=== PATIENT | male | born 1970 | race Caucasian/White ===

== ENCOUNTER 2023-06-05 21:22 | Inpatient (IN) | payer BC ==
[~2023-06-05] VITALS: Ht 188 cm; Wt 112.7 kg
[2023-06-05] MEDS ORDERED: morphine 4 MG/ML inj SYRINge IV ONE (22:45)
[2023-06-05] MEDS ORDERED: ondansetron/PF 4mg/2ml inj IV ONE (22:45)
[2023-06-05] MEDS ORDERED: furosemide 10 MG/1 ML 10ml inj IV ONE (22:45)
[2023-06-05] MEDS ORDERED: enalaprilat dihydrate 2.5mg/2ml vial IV ONE (22:45)
[2023-06-05] MEDS ORDERED: aspirin 325mg tablet PO ONE (22:45)
[2023-06-05] MEDS ORDERED: nitroGLYCERIN 1gm ointment UD TP ONE (22:45)
[2023-06-05 22:46] LABS: BASOPHILS % (AUTO) 0.2 % (0-1); EOSINOPHILS % (AUTO) 0.4 % (0-6); HEMATOCRIT 36.4 % (42.0-52.0); HEMOGLOBIN 12.4 g/dl (14.0-17.9); LYMPHOCYTES % (AUTO) 7.9 % (21-51); MEAN CORPUSCULAR HEMOGLOBIN 30.3 PG (27.0-31.0); MEAN CORPUSCULAR VOLUME 89.1 FL (78-98); MEAN PLATELET VOLUME 7.4 FL (7.4-10.4); MONOCYTES # (AUTO) 1.1 X10'3 (0-0.9); MONOCYTES % (AUTO) 8.9 % (2-12); NEUTROPHILS # (AUTO) 10.5 X10'3 (1.8-7.7); NEUTROPHILS % (AUTO) 82.6 % (42-75); PLATELET COUNT 421 X10'3 (140-440); RED BLOOD COUNT 4.08 X10'6 (4.70-6.10); RED CELL DISTRIBUTION WIDTH 12.9 % (11.5-14.5); WHITE BLOOD COUNT 12.7 X10'3 (4.5-11.0)
[2023-06-05 22:55] LABS: ALANINE AMINOTRANSFERASE 24 U/L (12-78); ALBUMIN 3.7 G/DL (3.4-5.0); ALBUMIN/GLOBULIN RATIO 0.8 (1.1-1.5); ALKALINE PHOSPHATASE 131 IU/L (46-116); ANION GAP 13 (8-16); ASPARTATE AMINO TRANSFERASE 11 U/L (10-37); BILIRUBIN,TOTAL 0.7 MG/DL (0.1-1.0); BLOOD UREA NITROGEN 11 MG/DL (7-18); BUN/CREATININE RATIO 10.7 (10.0-20.0); CALCIUM 9.6 MG/DL (8.5-10.1); CHLORIDE 99 MMOL/L (99-107); CREATININE 1.03 MG/DL (0.60-1.10); GLUCOSE 152 MG/DL (70-104); POTASSIUM 3.8 MMOL/L (3.5-5.1); SODIUM 135 MMOL/L (135-145); TOTAL CARBON DIOXIDE 23.1 MMOL/L (24-32); TOTAL PROTEIN 8.3 G/DL (6.4-8.2); eGFR 76 ML/MIN
[2023-06-05 23:01] LABS: D-DIMER 0.35 MG/L FEU (0-0.50)
[2023-06-05] MEDS ORDERED: normal saline 1000ML IV soln IVB ONE (23:30)
[2023-06-05] MEDS ORDERED: CefTRIAXone 2gm/D5W 50ml BAG 50 ML IV ONE (23:30)
[2023-06-05] MEDS ORDERED: methylPREDNISolone sod succ 125mg/2ml vial IV ONE (23:30)
[2023-06-05] MEDS ORDERED: albuterol 2.5 MG/3 ML nebule CONTNEB PRN (23:30)
[2023-06-05] MEDS ORDERED: azithromycin/NS 500mg/250ml 250 ML IV ONE (23:30)
[2023-06-05] MEDS ORDERED: iohexol 350MG/ML 100ml bottle IV ONE (23:34)
[2023-06-05] MEDS ORDERED: ipratropium 0.5 MG/2.5ML nebule IH ONE (23:55)
[2023-06-05 23:58] VITALS: PULSE 114; RESP 26; O2SAT 90
[2023-06-06] VITALS (22 sets, daily range): BP systolic 120–168; BP diastolic 62–79; PULSE 93–124; RESP 14–24; TEMP 97.6–98.6; O2SAT 80–95
[2023-06-06] MEDS ORDERED: potassium Cl 40MEQ/1/2NS 520ml 520 ML IV PRN (00:25)
[2023-06-06] MEDS ORDERED: magnesium hydroxide 30ml (MOM) UD suspension PO PRN (00:25)
[2023-06-06] MEDS ORDERED: acetaminophen 325mg tablet PO PRN ×2 (00:25)
[2023-06-06] MEDS ORDERED: morphine 2 MG/ML inj. syringe IV PRN (00:25)
[2023-06-06] MEDS ORDERED: magnesium 2GM in 50ml NS 50 ML IV PRN (00:25)
[2023-06-06] MEDS ORDERED: ondansetron/PF 4mg/2ml inj IV PRN (00:25)
[2023-06-06] MEDS ORDERED: magnesium 4gm in 100ml NS 100 ML IV PRN (00:25)
[2023-06-06] MEDS: normal saline 1000ml 1,000 ML IV SCH ×2 (00:25→15:01)
[2023-06-06] MEDS ORDERED: bisacodyl 10mg suppository rectal RC PRN (00:25)
[2023-06-06] MEDS ORDERED: potassium Cl 20 mEq SR tablet PO PRN ×2 (00:25)
[2023-06-06] MEDS ORDERED: magnesium Cl slow-release 64mg tablet PO PRN (00:25)
--- NOTE | 2023-06-06 01:50 | NUR ---
PAGER ID: [phone] MESSAGE: Admitted Pt. Cresencioeladio Rico in ER room 7, pneumonia. Respiratory advises pt needs HI flow O2 via [place], and PEP with oscillation. Pt 02 less than 90 on 6 L via nc . Tracie GREY
[2023-06-06] MEDS ORDERED: diltiazem-NS 100mg/100ml 100 ML IV SCH ×2 (02:05→02:20)
[2023-06-06] MEDS: levalbuterol 0.63mg/3ml nebule IH SCH ×4 (02:27→19:58)
[2023-06-06] MEDS: CefTRIAXone 2gm/D5W 50ml BAG 50 ML IV SCH (08:00)
[2023-06-06] MEDS: nicotine 14mg patch - 24hr TD SCH (08:03)
[2023-06-06] MEDS: ketorolac trometh. 30mg/ml inj. IV PRN (11:42)
[2023-06-06] MEDS ORDERED: ketorolac trometh. 30mg/ml inj. IV SCH (12:00)
[2023-06-06] MEDS ORDERED: LAMO100T PO (12:11)
[2023-06-06] MEDS ORDERED: PARO40TA4 PO (12:11)
[2023-06-06] MEDS ORDERED: ZOLP10TA PO (12:11)
[2023-06-06] MEDS ORDERED: QUET100T34 PO (12:11)
[2023-06-06] MEDS ORDERED: QUET200T31 PO (12:11)
[2023-06-06] MEDS ORDERED: LISD20CA PO ×2 (12:11)
--- NOTE | 2023-06-06 12:55 | NUR ---
Pt found with 02 off, using flutter valve, stated he "wanted a break". Sat checked, found to be 80% on RA. O2 replaced, instructed on risks of hypoxia and need to keep o2 in place at this time, states agreement
[2023-06-06] MEDS ORDERED: quetiapine 100mg tablet PO PRN (14:15)
[2023-06-06] MEDS ORDERED: zolpidem 5mg tablet PO PRN (14:25)
[2023-06-06 14:42] LABS: HEMOGLOBIN A1C 5.8 % (4.5-6.2)
[2023-06-06] MEDS: PARoxetine 20mg tablet PO SCH (15:11)
--- NOTE | 2023-06-06 18:34 | NUR ---
Patient in room PCU 3023. I have received report from Adam GREY, and had the opportunity to ask questions and assume patient care.
[2023-06-06] MEDS ORDERED: enoxaparin 40mg/0.4ml syringe SQ SCH (20:00)
[2023-06-06] MEDS: HYDROcodone/acetaminophen 5mg/325mg tablet PO PRN (20:14)
[2023-06-06] MEDS ORDERED: quetiapine 100mg tablet PO SCH (21:00)
[2023-06-06] MEDS ORDERED: azithromycin/NS 500mg/250ml 250 ML IV SCH (23:00)
[2023-06-07] VITALS (15 sets, daily range): BP systolic 126–151; BP diastolic 74–93; PULSE 100–114; RESP 14–22; TEMP 97.6–99.6; O2SAT 90–98
[2023-06-07] MEDS: levalbuterol 0.63mg/3ml nebule IH SCH ×3 (02:45→14:43)
[2023-06-07] MEDS: normal saline 1000ml 1,000 ML IV SCH (05:51)
[2023-06-07 06:04] LABS: BASOPHILS % (AUTO) 0.3 % (0-1); EOSINOPHILS % (AUTO) 0.1 % (0-6); HEMATOCRIT 30.1 % (42.0-52.0); HEMOGLOBIN 10.2 g/dl (14.0-17.9); LYMPHOCYTES # (AUTO) 1.9 X10'3 (1.1-4.8); LYMPHOCYTES % (AUTO) 12.3 % (21-51); MEAN CORPUSCULAR HEMOGLOBIN 30.3 PG (27.0-31.0); MEAN CORPUSCULAR HGB CONC 33.9 g/dL (33.0-36.5); MEAN CORPUSCULAR VOLUME 89.2 FL (78-98); MEAN PLATELET VOLUME 7.8 FL (7.4-10.4); MONOCYTES # (AUTO) 1.8 X10'3 (0-0.9); MONOCYTES % (AUTO) 11.4 % (2-12); NEUTROPHILS # (AUTO) 11.6 X10'3 (1.8-7.7); NEUTROPHILS % (AUTO) 75.9 % (42-75); PLATELET COUNT 383 X10'3 (140-440); RED BLOOD COUNT 3.37 X10'6 (4.70-6.10); WHITE BLOOD COUNT 15.3 X10'3 (4.5-11.0)
--- NOTE | 2023-06-07 06:25 | NUR ---
Problems reprioritized. Patient report given, questions answered & plan of care reviewed with Stella GREY. Pt stable at shift change.
[2023-06-07 06:36] LABS: ALANINE AMINOTRANSFERASE 16 U/L (12-78); ALBUMIN 2.8 G/DL (3.4-5.0); ALBUMIN/GLOBULIN RATIO 0.6 (1.1-1.5); ALKALINE PHOSPHATASE 112 IU/L (46-116); ANION GAP 13 (8-16); ASPARTATE AMINO TRANSFERASE 13 U/L (10-37); BILIRUBIN,TOTAL 0.2 MG/DL (0.1-1.0); BLOOD UREA NITROGEN 15 MG/DL (7-18); BUN/CREATININE RATIO 16.9 (10.0-20.0); CALCIUM 8.8 MG/DL (8.5-10.1); CHLORIDE 102 MMOL/L (99-107); CREATININE 0.89 MG/DL (0.60-1.10); GLUCOSE 150 MG/DL (70-104); POTASSIUM 3.8 MMOL/L (3.5-5.1); SODIUM 139 MMOL/L (135-145); TOTAL CARBON DIOXIDE 24.4 MMOL/L (24-32); TOTAL PROTEIN 7.4 G/DL (6.4-8.2); eGFR 90 ML/MIN
--- NOTE | 2023-06-07 06:47 | NUR ---
Patient in room PCU 3023. I have received report from MATILDA Osullivan and had the opportunity to ask questions and assume patient care.
[2023-06-07] MEDS ORDERED: lamoTRIgine 100mg tablet PO SCH (08:00)
[2023-06-07] MEDS ORDERED: lisdexamfetamine dimesylate 10mg capsule PO SCH ×2 (08:00→12:00)
[2023-06-07] MEDS: PARoxetine 20mg tablet PO SCH (09:28)
[2023-06-07] MEDS: nicotine 14mg patch - 24hr TD SCH ×2 (09:29→09:36)
[2023-06-07] MEDS: CefTRIAXone 2gm/D5W 50ml BAG 50 ML IV SCH (09:35)
[2023-06-07] MEDS: HYDROcodone/acetaminophen 5mg/325mg tablet PO PRN (09:35)
[2023-06-07] MEDS: ketorolac trometh. 30mg/ml inj. IV PRN (09:36)
--- NOTE | 2023-06-07 14:05 | NUR ---
O2 Sat at rest on room air:_90__% If below 89%: Recovery O2 Sat at rest on _2__LPM:__94_%:___% via NC__(mask/nasal cannula, etc..) No further documentation is necessary. If O2 Sat did not drop below 89% on room air,ambulate patient on room air. O2 Sat while ambulating on room air:_85__% Recovery O2 Sat while ambulating on __3_LPM:_92__% No further documentation is necessary. If patient does not drop below 89% while ambulating, he/she does not qualify for home O2.
--- NOTE | 2023-06-07 15:22 | NUR ---
PAGER ID: [phone] MESSAGE: Vazquez Rico in [phone] his preferred pharmacy is now in [place]. MATILDA Douglas [id number]
--- NOTE | 2023-06-07 16:20 | NUR ---
Patient in room PCU 3023. I have received report from Stella GREY and had the opportunity to ask questions and assume patient care.
--- NOTE | 2023-06-07 16:20 | NUR ---
Problems reprioritized. Patient report given, questions answered & plan of care reviewed with MERCY Montero.
--- NOTE | 2023-06-07 17:08 | NUR ---
Spoke Dr Johnson about discharge medications. He is going to evaluate what meds to order.
[2023-06-07] MEDS ORDERED: HYDR-3965 PO (17:19)
[2023-06-07] MEDS ORDERED: DOCU-148 PO (17:19)
[2023-06-07] MEDS ORDERED: LEVO750T68 PO (17:19)
--- NOTE | 2023-06-07 18:23 | NUR ---
Reported off to night nurse Shi GREY for discharge. IV removed and tele monitor removed and returned to [place].
--- NOTE | 2023-06-07 19:15 | NUR ---
received report from Kylah MADRID, pt discharging. Checked on the Pt whose was ready to leave. Family by his side and personal items all packed up. Pt stated he needed a MD note for work. Nurse called the provider regarding request. Nurse then brought note to Pt and helped the Pt to the front of the hospital and into personal vehicle. Pt left with Oxygen.
== END 2023-06-07 19:00 | disposition home or self-care (01) | DRG 193 ==
LOC: ER 21:23 → UNDOADMIN 06-06 00:27 → ED HOLD 06-06 00:27 → PCU 3S 06-06 07:37 → ED HOLD 06-06 07:37
PROVIDERS: ADMIT Internal Medicine; ATTEND Internal Medicine
PROC: B32T1ZZ Computerized Tomography (CT Scan) of Left Pulmonary Artery using Low Osmolar Contrast (ICD-10-PCS; principal; 2023-06-06)
PROC: B3201ZZ Computerized Tomography (CT Scan) of Thoracic Aorta using Low Osmolar Contrast (ICD-10-PCS; 2023-06-06)
PROC: B32S1ZZ Computerized Tomography (CT Scan) of Right Pulmonary Artery using Low Osmolar Contrast (ICD-10-PCS; 2023-06-06)
PROC: 5A0935A Assistance with Respiratory Ventilation, Less than 24 Consecutive Hours, High Flow/Velocity Cannula (ICD-10-PCS; 2023-06-06)
DX: J18.9 Pneumonia, unspecified organism (principal); J96.01 Acute respiratory failure with hypoxia; J90 Pleural effusion, not elsewhere classified; F90.9 Attention-deficit hyperactivity disorder, unspecified type; Z20.822 Contact with and (suspected) exposure to COVID-19; F17.210 Nicotine dependence, cigarettes, uncomplicated; I25.10 Atherosclerotic heart disease of native coronary artery without angina pectoris; D72.829 Elevated white blood cell count, unspecified
CPT/HCPCS: 36415; 71045; 71275; 80053; 83036; 83605; 83880; 84484; 85025; 85379; 87040; 87081; 87502; 87503; 87811; 94640; 94664; 94668; 94760; 97110; 97161; 99285; A7015; G0378; J0456; J0696; J1650; J1885; J2270; J2405; J2930; J3490; J7030; J7614; Q9967

== ENCOUNTER 2023-06-10 15:40 | Inpatient (IN) | payer BC ==
[~2023-06-10] VITALS: Ht 188 cm; Wt 92.8 kg
[~2023-06-10 15:40] MED LIST: DOCU-148 PO; HYDR-3965 PO; LAMO100T PO; LEVO750T68 PO; LISD20CA PO; PARO40TA4 PO; QUET100T34 PO; QUET200T31 PO; ZOLP10TA PO
[2023-06-10 16:14] LABS: HEMOGLOBIN 12.1 g/dl (14.0-17.9); PLATELET COUNT 751 X10'3 (140-440)
[2023-06-10 16:15] LABS: BASOPHILS # (AUTO) 0.1 X10'3 (0-0.2); BASOPHILS % (AUTO) 0.8 % (0-1); EOSINOPHILS # (AUTO) 0.3 X10'3 (0-0.9); EOSINOPHILS % (AUTO) 2.5 % (0-6); HEMATOCRIT 35.9 % (42.0-52.0); LYMPHOCYTES # (AUTO) 2.3 X10'3 (1.1-4.8); LYMPHOCYTES % (AUTO) 17.1 % (21-51); MEAN CORPUSCULAR HEMOGLOBIN 30.3 PG (27.0-31.0); MEAN CORPUSCULAR HGB CONC 33.9 g/dL (33.0-36.5); MEAN CORPUSCULAR VOLUME 89.3 FL (78-98); MEAN PLATELET VOLUME 6.8 FL (7.4-10.4); MONOCYTES # (AUTO) 1.5 X10'3 (0-0.9); NEUTROPHILS % (AUTO) 68.6 % (42-75); RED BLOOD COUNT 4.01 X10'6 (4.70-6.10); RED CELL DISTRIBUTION WIDTH 13.5 % (11.5-14.5); WHITE BLOOD COUNT 13.2 X10'3 (4.5-11.0)
[2023-06-10 16:29] LABS: ALANINE AMINOTRANSFERASE 69 U/L (12-78); ALBUMIN 3.1 G/DL (3.4-5.0); ALBUMIN/GLOBULIN RATIO 0.5 (1.1-1.5); ALKALINE PHOSPHATASE 219 IU/L (46-116); ANION GAP 12 (8-16); ASPARTATE AMINO TRANSFERASE 17 U/L (10-37); BILIRUBIN,TOTAL 0.4 MG/DL (0.1-1.0); BLOOD UREA NITROGEN 16 MG/DL (7-18); BUN/CREATININE RATIO 15.5 (10.0-20.0); CALCIUM 10.5 MG/DL (8.5-10.1); CHLORIDE 96 MMOL/L (99-107); CREATININE 1.03 MG/DL (0.60-1.10); GLUCOSE 104 MG/DL (70-104); POTASSIUM 3.7 MMOL/L (3.5-5.1); SODIUM 136 MMOL/L (135-145); TOTAL CARBON DIOXIDE 27.8 MMOL/L (24-32); TOTAL PROTEIN 9.2 G/DL (6.4-8.2); eGFR 76 ML/MIN
[2023-06-10] MEDS ORDERED: ondansetron/PF 4mg/2ml inj IV ONE (18:15)
[2023-06-10] MEDS ORDERED: morphine 4 MG/ML inj SYRINge IV ONE (18:15)
[2023-06-10] MEDS ORDERED: normal saline 1000ml 1,000 ML IV ONE (18:20)
[2023-06-10] MEDS ORDERED: piperacillin/tazo 3.375gm/50ml 50 ML IV ONE (18:20)
[2023-06-10] MEDS ORDERED: iohexol 350MG/ML 100ml bottle IV ONE (18:39)
[2023-06-10] MEDS ORDERED: magnesium hydroxide 30ml (MOM) UD suspension PO PRN (21:30)
[2023-06-10] MEDS ORDERED: ondansetron/PF 4mg/2ml inj IV PRN (21:30)
[2023-06-10] MEDS ORDERED: ipratropium/albuterol 3ml nebule NEB PRN (21:30)
[2023-06-10] MEDS ORDERED: diphenhydrAMINE 25mg capsule PO PRN (21:30)
[2023-06-10] MEDS ORDERED: mag hydrox/Alum hydrox/simeth 30ml oral suspension PO PRN (21:30)
[2023-06-10] MEDS ORDERED: acetaminophen 325mg tablet PO PRN ×2 (21:30)
[2023-06-10] MEDS ORDERED: HYDROcodone/acetaminophen 5mg/325mg tablet PO PRN (21:30)
[2023-06-10] MEDS ORDERED: dextrose 5%-1/2 normal saline 1,000 ML IV SCH (21:30)
[2023-06-10] MEDS ORDERED: ondansetron 4mg rapidly disintigrating tab PO PRN (21:30)
[2023-06-10] MEDS ORDERED: diphenhydrAMINE 50 mg/ml inj IV PRN (21:30)
[2023-06-10] MEDS ORDERED: morphine 2 MG/ML inj. syringe IV PRN ×2 (21:30)
[2023-06-10] MEDS ORDERED: bisacodyl 10mg suppository rectal RC PRN (21:30)
[2023-06-10 22:27] LABS: CREATINE KINASE 30 U/L (39-308); LIPASE < 50 U/L (73-393); MAGNESIUM 2.3 MG/DL (1.5-2.4); PHOSPHORUS 4.2 MG/DL (2.3-4.5)
[2023-06-10 22:29] LABS: APTT 35 SECONDS (22-32); D-DIMER 5.51 MG/L FEU (0-0.50)
[2023-06-10 23:47] VITALS: PULSE 103; RESP 16; O2SAT 93
[2023-06-10 23:54] VITALS: PULSE 101; RESP 16
[2023-06-11] VITALS (17 sets, daily range): BP systolic 108–153; BP diastolic 66–91; PULSE 85–116; RESP 13–20; TEMP 97.7–100; O2SAT 91–97
[2023-06-11 00:26] LABS: URINE AMPHETAMINE SCREEN POSITIVE (Neg); URINE BARBITUATE SCREEN NEGATIVE (Neg); URINE BENZODIAZEPINES SCREEN NEGATIVE (Neg); URINE CANNABINOID SCREEN NEGATIVE (Neg); URINE COCAINE SCREEN NEGATIVE (Neg); URINE METHADONE SCREEN NEGATIVE (Neg); URINE OPIATE SCREEN POSITIVE (Neg); URINE PHENCYCLIDINE SCREEN NEGATIVE (Neg)
[2023-06-11 05:46] LABS: ALBUMIN 2.7 G/DL (3.4-5.0); ANION GAP 9 (8-16); BASOPHILS # (AUTO) 0.1 X10'3 (0-0.2); BLOOD UREA NITROGEN 14 MG/DL (7-18); BUN/CREATININE RATIO 14.7 (10.0-20.0); CALCIUM 9.4 MG/DL (8.5-10.1); CHLORIDE 97 MMOL/L (99-107); CREATININE 0.95 MG/DL (0.60-1.10); EOSINOPHILS # (AUTO) 0.4 X10'3 (0-0.9); EOSINOPHILS % (AUTO) 3.8 % (0-6); GLUCOSE 137 MG/DL (70-104); LYMPHOCYTES # (AUTO) 1.7 X10'3 (1.1-4.8); LYMPHOCYTES % (AUTO) 15.6 % (21-51); MEAN PLATELET VOLUME 6.9 FL (7.4-10.4); MONOCYTES # (AUTO) 1.1 X10'3 (0-0.9); POTASSIUM 3.8 MMOL/L (3.5-5.1); SODIUM 134 MMOL/L (135-145); TOTAL CARBON DIOXIDE 27.8 MMOL/L (24-32); eGFR 84 ML/MIN
[2023-06-11 05:48] LABS: BASOPHILS % (AUTO) 0.6 % (0-1); HEMATOCRIT 32.8 % (42.0-52.0); MEAN CORPUSCULAR HEMOGLOBIN 29.7 PG (27.0-31.0); MEAN CORPUSCULAR HGB CONC 33.5 g/dL (33.0-36.5); MEAN CORPUSCULAR VOLUME 88.7 FL (78-98); MONOCYTES % (AUTO) 9.8 % (2-12); NEUTROPHILS # (AUTO) 7.7 X10'3 (1.8-7.7); NEUTROPHILS % (AUTO) 70.2 % (42-75); RED CELL DISTRIBUTION WIDTH 13.7 % (11.5-14.5)
[2023-06-11 05:49] LABS: PLATELET COUNT 678 X10'3 (140-440)
--- NOTE | 2023-06-11 06:20 | NUR ---
Problems reprioritized. Patient report given, questions answered & plan of care reviewed with
--- NOTE | 2023-06-11 07:14 | NUR ---
Patient in room PCU 3026. I have received report from SUZY GREY and had the opportunity to ask questions and assume patient care.
[2023-06-11] MEDS: pantoprazole 40mg Tablet.DR PO SCH (07:54)
[2023-06-11] MEDS: docusate sod 100mg capsule PO SCH ×2 (07:54→20:40)
[2023-06-11] MEDS: HYDROcodone/acetaminophen 10/325mg tab PO PRN ×2 (07:55→18:05)
[2023-06-11] MEDS: heparin, porcine 5000 units/ml vial SQ SCH ×2 (07:55→20:41)
[2023-06-11] MEDS ORDERED: LEVO750T68 PO (11:24)
[2023-06-11] MEDS ORDERED: DOCU100C40 PO (11:24)
[2023-06-11] MEDS ORDERED: HYDR-3964 PO (11:24)
[2023-06-11] MEDS ORDERED: lamoTRIgine 100mg tablet PO SCH (11:37)
[2023-06-11] MEDS ORDERED: PARoxetine 20mg tablet PO SCH (11:38)
[2023-06-11] MEDS: lisdexamfetamine dimesylate 10mg capsule PO SCH (11:50)
[2023-06-11] MEDS: quetiapine 100mg tablet PO SCH ×2 (11:51→20:40)
[2023-06-11] MEDS: levoFLOXACIN 750MG TABLET PO SCH (11:51)
[2023-06-11 14:25] LABS: BFSOURCE LEFT PLEURAL FLD
[2023-06-11 14:37] LABS: GLUCOSE,BODY FLUID 111 MG/DL; LDH,BODY FLUID 582 U/L; TOTAL PROTEIN,BODY FLUID 5.7 G/DL
[2023-06-11 15:32] LABS: BFAPPEAR HAZY; BFCOLOR YELLOW
[2023-06-11 15:33] LABS: BF RBC COUNT 6125 /CU MM; BF WBC COUNT 2275 /CU MM (0-1000); BFVOLUME 10 ML; EOSINOPHILS,BODY FLUID 1 %; LYMPHOCYTES,BODY FLUID 82 %; MONOCYTES,BODY FLUID 3 %; NEUTROPHILS,BODY FLUID 14 %
--- NOTE | 2023-06-11 16:20 | NUR ---
patient seen by Dr clemens. Thoracentesis done to left chest. 110mls removed per report. Patient appears stable
--- NOTE | 2023-06-11 18:33 | NUR ---
Problems reprioritized. Patient report given, questions answered & plan of care reviewed with Harriett RN.
[2023-06-11] MEDS ORDERED: nicotine 21mg patch - 24 hr TD SCH (20:00)
[2023-06-11] MEDS: PARoxetine 20mg tablet PO SCH (20:40)
[2023-06-11] MEDS: lamoTRIgine 100mg tablet PO SCH (20:40)
[2023-06-12] VITALS (7 sets, daily range): BP systolic 100–142; BP diastolic 54–88; PULSE 89–107; RESP 14–24; TEMP 98.2–99.4; O2SAT 90–96
--- NOTE | 2023-06-12 06:34 | NUR ---
Patient in room PCU 3026. I have received report from Harriett RN and had the opportunity to ask questions and assume patient care.
[2023-06-12 06:45] LABS: ALBUMIN 2.6 G/DL (3.4-5.0); ANION GAP 13 (8-16); BASOPHILS # (AUTO) 0.1 X10'3 (0-0.2); BLOOD UREA NITROGEN 13 MG/DL (7-18); BUN/CREATININE RATIO 13.4 (10.0-20.0); CALCIUM 9.9 MG/DL (8.5-10.1); CHLORIDE 96 MMOL/L (99-107); CREATININE 0.97 MG/DL (0.60-1.10); EOSINOPHILS # (AUTO) 0.4 X10'3 (0-0.9); GLUCOSE 135 MG/DL (70-104); HEMOGLOBIN 11.2 g/dl (14.0-17.9); LYMPHOCYTES # (AUTO) 2.2 X10'3 (1.1-4.8); MEAN CORPUSCULAR HGB CONC 34.1 g/dL (33.0-36.5); RED CELL DISTRIBUTION WIDTH 13.5 % (11.5-14.5); SODIUM 135 MMOL/L (135-145); TOTAL CARBON DIOXIDE 25.8 MMOL/L (24-32); eGFR 82 ML/MIN
[2023-06-12 06:48] LABS: BASOPHILS % (AUTO) 0.5 % (0-1); EOSINOPHILS % (AUTO) 4.2 % (0-6); MEAN CORPUSCULAR VOLUME 88.1 FL (78-98); MEAN PLATELET VOLUME 6.9 FL (7.4-10.4); MONOCYTES # (AUTO) 1.1 X10'3 (0-0.9); MONOCYTES % (AUTO) 10.7 % (2-12); NEUTROPHILS # (AUTO) 6.8 X10'3 (1.8-7.7); NEUTROPHILS % (AUTO) 63.6 % (42-75); PLATELET COUNT 717 X10'3 (140-440); RED BLOOD COUNT 3.75 X10'6 (4.70-6.10); WHITE BLOOD COUNT 10.7 X10'3 (4.5-11.0)
--- NOTE | 2023-06-12 07:01 | NUR ---
This RN has reviewed and agrees w/the VISCOSE DEPARTMENT WORKER's physical assessment of this pt.
[2023-06-12] MEDS ORDERED: docusate sod 100mg capsule PO SCH (08:00)
[2023-06-12] MEDS: docusate sod 100mg capsule PO SCH ×2 (08:07→20:00)
[2023-06-12] MEDS ORDERED: nicotine 21mg patch - 24 hr TD SCH (08:07)
[2023-06-12] MEDS: pantoprazole 40mg Tablet.DR PO SCH (08:07)
[2023-06-12] MEDS: heparin, porcine 5000 units/ml vial SQ SCH ×2 (08:08→21:10)
[2023-06-12] MEDS: lisdexamfetamine dimesylate 10mg capsule PO SCH ×2 (08:08→12:11)
[2023-06-12] MEDS: HYDROcodone/acetaminophen 10/325mg tab PO PRN ×2 (08:17→17:36)
[2023-06-12] MEDS ORDERED: iohexol 350MG/ML 100ml bottle IV ONE (10:31)
[2023-06-12] MEDS: levoFLOXACIN 750MG TABLET PO SCH (12:10)
[2023-06-12] MEDS: quetiapine 100mg tablet PO SCH ×2 (12:10→21:10)
--- NOTE | 2023-06-12 17:05 | NUR ---
patient stated that he feels like he is filling up again in his chest. More SOB and painful. patient was for possible discharge, but delayed due to change in condition. Dr Anuradha richmond.
--- NOTE | 2023-06-12 18:24 | NUR ---
medicated for pain x2 with good result. Report given to Harriett GREY
[2023-06-12] MEDS: PARoxetine 20mg tablet PO SCH (20:00)
[2023-06-12] MEDS: lamoTRIgine 100mg tablet PO SCH (21:10)
[2023-06-13 02:00] VITALS: BP 107/58; PULSE 94; RESP 20; TEMP 98.3; O2SAT 95
[2023-06-13 02:00] LABS: BASOPHILS # (AUTO) 0.1 X10'3 (0-0.2); EOSINOPHILS # (AUTO) 0.4 X10'3 (0-0.9); MEAN PLATELET VOLUME 6.9 FL (7.4-10.4); NEUTROPHILS # (AUTO) 7.2 X10'3 (1.8-7.7); WHITE BLOOD COUNT 10.8 X10'3 (4.5-11.0)
[2023-06-13 02:04] LABS: BASOPHILS % (AUTO) 0.5 % (0-1); EOSINOPHILS % (AUTO) 3.4 % (0-6); LYMPHOCYTES # (AUTO) 2.1 X10'3 (1.1-4.8); LYMPHOCYTES % (AUTO) 19.2 % (21-51); MEAN CORPUSCULAR HEMOGLOBIN 30.4 PG (27.0-31.0); MEAN CORPUSCULAR HGB CONC 34.2 g/dL (33.0-36.5); MEAN CORPUSCULAR VOLUME 88.9 FL (78-98); MONOCYTES # (AUTO) 1.1 X10'3 (0-0.9); NEUTROPHILS % (AUTO) 66.9 % (42-75); PLATELET COUNT 718 X10'3 (140-440); RED BLOOD COUNT 3.61 X10'6 (4.70-6.10); RED CELL DISTRIBUTION WIDTH 13.9 % (11.5-14.5)
[2023-06-13 02:05] LABS: ALBUMIN 2.7 G/DL (3.4-5.0); ANION GAP 14 (8-16); BLOOD UREA NITROGEN 16 MG/DL (7-18); BUN/CREATININE RATIO 16.5 (10.0-20.0); CALCIUM 9.8 MG/DL (8.5-10.1); CHLORIDE 95 MMOL/L (99-107); CREATININE 0.97 MG/DL (0.60-1.10); GLUCOSE 173 MG/DL (70-104); POTASSIUM 3.8 MMOL/L (3.5-5.1); SODIUM 133 MMOL/L (135-145); eGFR 82 ML/MIN
[2023-06-13 06:00] VITALS: BP 124/77; PULSE 69; RESP 16; TEMP 97; O2SAT 92
--- NOTE | 2023-06-13 06:25 | NUR ---
Patient in room PCU 3026. I have received report from Radha RN and had the opportunity to ask questions and assume patient care.
--- NOTE | 2023-06-13 07:29 | NUR ---
This RN has reviewed and agrees w/the SHIPFITTERS SUPERVISOR's physical assessment of this patient.
[2023-06-13] MEDS: docusate sod 100mg capsule PO SCH (08:00)
[2023-06-13] MEDS: pantoprazole 40mg Tablet.DR PO SCH (08:21)
[2023-06-13] MEDS: lisdexamfetamine dimesylate 10mg capsule PO SCH ×2 (08:22→11:56)
[2023-06-13] MEDS: heparin, porcine 5000 units/ml vial SQ SCH (08:25)
[2023-06-13] MEDS: HYDROcodone/acetaminophen 10/325mg tab PO PRN (08:30)
[2023-06-13] MEDS: levoFLOXACIN 750MG TABLET PO SCH (11:56)
[2023-06-13] MEDS: quetiapine 100mg tablet PO SCH (11:56)
[2023-06-13 12:36] VITALS: BP 133/80; PULSE 105; RESP 25; TEMP 98.1; O2SAT 95
[2023-06-13] MEDS ORDERED: NICO-687 TD (13:10)
[2023-06-13] MEDS ORDERED: LEVO750T68 PO (13:10)
[2023-06-13] MEDS ORDERED: ALBU18HF2 IH (13:11)
--- NOTE | 2023-06-13 15:52 | NUR ---
patient was up and about in room. medicated x1 for pain with good result. Seen by Dr Ling is for discharge. All Dc instructions given to patient. patient DC home via private car with spouse in stable condition
== END 2023-06-13 13:45 | disposition home or self-care (01) | DRG 186 ==
LOC: ER 15:42 → ED HOLD 21:34 → PCU 3S 23:53
PROVIDERS: ADMIT Family Medicine; ATTEND Internal Medicine
PROC: B32T1ZZ Computerized Tomography (CT Scan) of Left Pulmonary Artery using Low Osmolar Contrast (ICD-10-PCS; principal; 2023-06-10)
PROC: B3201ZZ Computerized Tomography (CT Scan) of Thoracic Aorta using Low Osmolar Contrast (ICD-10-PCS; 2023-06-10)
PROC: B32S1ZZ Computerized Tomography (CT Scan) of Right Pulmonary Artery using Low Osmolar Contrast (ICD-10-PCS; 2023-06-10)
PROC: 0W9B3ZX Drainage of Left Pleural Cavity, Percutaneous Approach, Diagnostic (ICD-10-PCS; 2023-06-11)
PROC: B32T1ZZ Computerized Tomography (CT Scan) of Left Pulmonary Artery using Low Osmolar Contrast (ICD-10-PCS; 2023-06-12)
PROC: B3201ZZ Computerized Tomography (CT Scan) of Thoracic Aorta using Low Osmolar Contrast (ICD-10-PCS; 2023-06-12)
PROC: B32S1ZZ Computerized Tomography (CT Scan) of Right Pulmonary Artery using Low Osmolar Contrast (ICD-10-PCS; 2023-06-12)
DX: J90 Pleural effusion, not elsewhere classified (principal); J18.9 Pneumonia, unspecified organism; J96.01 Acute respiratory failure with hypoxia; I31.39 Other pericardial effusion (noninflammatory); Z20.822 Contact with and (suspected) exposure to COVID-19; F17.210 Nicotine dependence, cigarettes, uncomplicated; D64.9 Anemia, unspecified; I10 Essential (primary) hypertension; F32.A Depression, unspecified; F90.9 Attention-deficit hyperactivity disorder, unspecified type; Z79.899 Other long term (current) drug therapy; Z71.6 Tobacco abuse counseling
CPT/HCPCS: 32555; 36415; 71045; 71046; 71275; 80048; 80053; 80305; 82550; 82945; 83605; 83615; 83690; 83735; 83880; 83986; 84100; 84145; 84157; 84443; 84484; 85025; 85379; 85610; 85730; 87040; 87070; 87081; 87102; 87811; 89051; 93005; 93306; 94640; 94760; 99285; G0378; J1644; J2270; J2405; J2543; J3490; J7030; Q9967